=== PATIENT | male | born 1975 | race Caucasian/White ===

== ENCOUNTER 2018-09-29 09:39 | Emergency (ER) | payer BC, SELFPAY ==
[2018-09-29] MEDS ORDERED: diphenhydrAMINE 50 MG/ML VIAL ONE (10:13)
[2018-09-29] MEDS ORDERED: Ketorolac Tromethamine 30 MG/ML VIAL ONE (10:13)
[2018-09-29] MEDS ORDERED: Prochlorperazine 10 MG/2 ML VIAL ONE (10:13)
[2018-09-29] MEDS ORDERED: cefTRIAXone\\ROCEPHIN 1 GM VIAL ONE (10:49)
[2018-09-29] MEDS ORDERED: Sodium Chloride 0.9% 100 ML ONE (10:49)
[2018-09-29] MEDS ORDERED: methylPREDNISolone Sod Succ/PF 125 MG/2 ML VIAL ONE (10:50)
--- NOTE | 2018-09-29 11:16 | CT ---
BRAIN CT WITHOUT IV CONTRAST: HISTORY: A 43-year-old male with a history of left frontal and orbital headaches for 4-5 days. FINDINGS: There is no focal mass or midline shift. No intra- or extraaxial hemorrhage. There are some mucosal changes in the sinuses, particularly in the left frontal and ethmoid sinuses. The mastoids are michele r. IMPRESSION: No significant acute intracranial process. No mass or bleed. Left frontal and ethmoid sinus mucosal disease. POS: [facility]
== END 2018-09-29 11:24 | disposition home or self-care (01) ==
LOC: BURERS 09:39
DX: J01.90 Acute sinusitis, unspecified (principal); F17.220 Nicotine dependence, chewing tobacco, uncomplicated
CPT/HCPCS: 36416; 70450; 96365; 96368; 96375; J0696; J0780; J1200; J1885; J2930; J7050